=== PATIENT | male | born 1960 | race African-American/Black ===

== ENCOUNTER 2024-06-22 21:31 | Emergency (ER) | payer SELFPAY ==
[~2024-06-22] VITALS: Ht 175.3 cm; Wt 209.0 kg
[2024-06-22 21:39] VITALS: O2SAT 98
[2024-06-23 00:26] LABS: EOSINOPHILS % 0.2 % (0.0-5.0); RED CELL DISTRIBUTION WIDTH 13.6 % (11.6-14.6); WHITE BLOOD COUNT 6.6 x1000/uL (4.5-11.0)
[2024-06-23] MEDS: SODIUM CHLORIDE 0.9% 1,000 ML IV ONE (00:38)
[2024-06-23 00:40] LABS: CHLORIDE 103 mEq/L (98-107); POTASSIUM 3.9 mEq/L (3.5-5.1); SODIUM 138 mEq/L (136-145)
[2024-06-23 00:41] LABS: CALCIUM 9.3 mg/dL (8.7-10.4); CARBON DIOXIDE 27 mEq/L (21-32)
[2024-06-23 00:46] LABS: CREATININE 1.2 mg/dL (0.6-1.3); ETHANOL BLOOD 185 mg/dL (<10); GLUCOSE 102 mg/dL (70-105); UREA NITROGEN BLOOD 14 mg/dL (9-23)
[2024-06-23 00:48] LABS: ACETAMINOPHEN < 2 ug/mL (10-30); CREATINE KINASE 860 IU/L (46-171); TROPONIN I HIGH SENSITIVITY 14 ng/L (3.0-53)
[2024-06-23 01:18] LABS: BASOPHILS % 0.8 % (0.0-2.0); HEMATOCRIT. 43.6 % (42.0-52.0); HEMOGLOBIN. 14.5 g/dL (14.0-18.0); LYMPHOCYTES % 12.1 % (20.0-50.0); MEAN CORPUSCULAR HEMOGLOBIN 31.9 pg (28.0-32.0); MEAN CORPUSCULAR HGB CONC 33.4 g/dL (31.0-37.0); MEAN CORPUSCULAR VOLUME 95.6 fL (80.0-94.0); MONOCYTES % 6.3 % (2.0-8.0); NEUTROPHILS % 80.6 % (40.0-76.0); PLATELET 219 x1000/uL (130-400); RED BLOOD CELL COUNT 4.56 mill/uL (4.7-6.1)
[2024-06-23 01:32] LABS: DIFFERENTIAL COMMENT 1
[2024-06-23 02:54] LABS: CLARITY URINE CLEAR (CLEAR); COLOR URINE YELLOW (YELLOW); GLUCOSE URINE NEGATIVE (NEGATIVE); KETONES URINE NEGATIVE (NEGATIVE); LEUKOCYTE ESTERASE URINE NEGATIVE (NEGATIVE); NITRITE URINE NEGATIVE (NEGATIVE); OCCULT BLOOD URINE NEGATIVE (NEGATIVE); PH URINE 5.5 (4.5-8.0); PROTEIN URINE NEGATIVE (NEGATIVE); SPECIFIC GRAVITY URINE 1.011 (1.005-1.030); UROBILINOGEN URINE 0.2 E.U./dL (0.2-1.0)
[2024-06-23 03:01] LABS: *AMPHETAMINES SCREEN URINE NEGATIVE (NEGATIVE); *BARBITURATES SCREEN URINE NEGATIVE (NEGATIVE); *BENZODIAZEPINES SCREEN URINE NEGATIVE (NEGATIVE); *COCAINE SCREEN URINE NEGATIVE (NEGATIVE); CANNABINOID URINE SCREEN PRESUMPTIVE POSITIVE (NEGATIVE); ECSTASY MDMA SCREEN URINE NEGATIVE (NEGATIVE); METHADONE URINE SCREEN NEGATIVE (NEGATIVE); OPIATES URINE SCREEN NEGATIVE (NEGATIVE); PHENCYCLIDINE URINE SCREEN NEGATIVE (NEGATIVE)
[2024-06-23 04:29] LABS: TROPONIN I HIGH SENSITIVITY 16 ng/L (3.0-53)
[2024-06-23 06:00] VITALS: BP 138/85; PULSE 79; RESP 16; TEMP 98.5
== END 2024-06-23 06:09 | disposition home or self-care (01) ==
LOC: ER 21:31
DX: F10.129 Alcohol abuse with intoxication, unspecified (principal); R55 Syncope and collapse; Y90.6 Blood alcohol level of 120-199 mg/100 ml
CPT/HCPCS: 80048; 80307; 80329; 80320; 82550; 85025; 84484 ×2; 36415 ×2; 71045; 99285; 80305; 81003; 70450; 93005; J7030; G0480